=== PATIENT | female | born 1985 | race Caucasian/White ===

== ENCOUNTER 2025-02-12 14:07 | Observation (INO) ==
--- NOTE | 2025-02-12 14:47 | Emergency Department Note ---
Impression & Plan AMS (altered mental status), Elevated CK, Sinus tachycardia, Acute dehydration ED Provider Note HISTORY OF PRESENT ILLNESS: Patient is a 40-year-old female presenting with altered mental status and reported seizure-like activity. Patient was found by this morning to be very confused. He reports that they are currently having marital problems and is unsure if the patient has recently been drinking or if she took any extra medications. She reportedly had "seizure-like activity" in which she was rolling around on the ground. Patient remembers the entirety of the episode. Patient thinks it is 2013 and that it is Friday. She does report she had alcohol last night but she is unsure as to what she had to drink or when she stopped drinking. She has no complaints of pain on arrival to the emergency department. Denies any headache or changes in vision. arrives later and supplies more history. Reports that he has been out of town for the last few days but him and his have been face timing. States that she has not been taking their separation well and has not been eating or drinking very frequently. He states that last night he was FaceTime with the patient and she fell asleep while talking to him. Reports that he had his sister going to check on the patient and she was found laying on the bathroom floor next to the toilet. He reports that he got back around midday today and found the patient on her knees in the kitchen and states that she was speaking nonsensically. He states that he witnessed her take 5 pills, but thinks it was just some ibuprofen and sleep aid, as those are the only bottles in the house. He states that he assisted the patient to their dining room table and when he got her there, she started having "weird body convulsions and her face looked very scared." He reports that she has never had a seizure before. States that she was confused for a few minutes after the episode. Thinks that the episode lasted for around 60 seconds. No bowel or bladder incontinence. ROS: as above PHYSICAL EXAM: Constitutional: Patient appears in no acute distress. HENT: Head: Normocephalic and atraumatic. Eyes: EOMI, PERRL. Pupils are dilated but reactive to light. Mouth/Throat: Mucous membranes dry and tacky. Neck: Trachea midline. Neck supple. No midline cervical spine tenderness palpation. Cardiovascular: Tachycardic with regular rhythm. No murmurs, rubs or gallops. Intact distal pulses. Pulmonary/Chest: No respiratory distress. Breath sounds clear and equal bilaterally. No wheezes or rales. No chest wall tenderness to palpation. Abdominal: Abdomen soft, no tenderness, rebound or guarding. Musculoskeletal: No edema, tenderness or deformity noted. Skin: Warm and dry. No rash, erythema, pallor or cyanosis Neurological: Alert to person and place, but confused to time. She thinks it is 2013 and Friday. CN II-XII grossly intact, moving all extremities equally and fully. MDM: - Vitals signs showed tachycardia - History obtained via patient and EMS, given patient's confusion. History as above. - Chronic conditions affecting care: None - Differential diagnoses include, but are not limited to: Dehydration; electrolyte abnormality; dysrhythmia; ACS; pneumonia; CVA; alcohol intoxication; drug intoxication - Order placed for continuous cardiac monitoring. At this time, monitor showed rate of 115 bpm with normal sinus rhythm, per my interpretation. - External medical records reviewed. - EKG image interpreted by myself showed normal sinus rhythm. Rate tachycardic at 114 bpm. QT 334. No acute ischemic changes. - Laboratory workup interpreted by myself showed leukocytosis (WBC 13.53); normal PT/INR; stable electrolytes other than slight hypomagnesemia (Mg 2.6); elevated ALT (72); normal total bilirubin; elevated CK (824); normal troponin; normal lipase; normal TSH; negative hCG - CT head wo contrast negative for acute intracranial pathology - CT cervical spine wo contrast negative for acute injury - Tylenol, aspirin and acetaminophen levels negative - CXR image reviewed and interpreted by myself was negative for pneumonia, per my interpretation. - Patient given 2L NS in ER. Heart rate remained tachycardic, but did improve to the 110-115 bpm range. - UA negative for infection, but noted to have ketonuria. - UDS negative - On reassessment, the patient is still not back to her baseline per her at bedside. Unclear etiology for her symptoms at this time. She is still tachycardic despite 2 L of normal saline. - Discussion was had with watch case polisher about patient's case and need for admission - Hospitalist consulted for admission a - Patient admitted to [facility] service for further evaluation and management. ASSESSMENT AND PLAN: Diagnosis: Altered mental status; sinus tachycardia; elevated CK; acute dehydration Plan: admit Past Med/Surg History Problem List (Updated 02/12/25 @ 17:01 by Elizabeth Weller MD) Acute dehydration (Acute) Sinus tachycardia (Acute) Elevated CK (Acute) AMS (altered mental status) (Acute) Social History Smoking Status: Unknown if ever smoked Preferred Language: Czech Feels Safe at Home: Yes Allergies Allergies Allergy/AdvReac Type Severity Reaction Status Date / Time amoxicillin Allergy Severe Rash Unverified 02/12/25 16:07 Home Meds Home Medications Medication Instructions Recorded Confirmed loratadine 10 mg tablet 10 mg PO DAILY 02/12/25 02/12/25 omeprazole 20 mg capsule,delayed 20 mg PO DAILY 02/12/25 02/12/25 release Results & Data (ED) Vital Signs Vital Signs - 24 hr 02/12/25 14:27 02/12/25 14:42 02/12/25 14:42 Temperature Temperature Source Pulse Rate 116 H 125 H 118 H Pulse Rate [Apical] Pulse Rate from SpO2 Sensor 116 H 117 H Pulse Rhythm Pulse Rhythm [Apical] Pulse Strength Pulse Strength [Apical] Respiratory Rate 22 20 Respiratory Effort / Characteristics Respiratory Depth Respiratory Pattern Blood Pressure 137/90 Blood Pressure [Left Arm] Blood Pressure Mean 105 Blood Pressure Mean [Left Arm] Blood Pressure Position Blood Pressure Position [Left Arm] Pulse Oximetry 99 100 Oxygen Delivery Method Sepsis Recent Fever Within 48 Hours Sepsis New/Unexplained Change in Mental Status Sepsis Action Taken by Nursing 02/12/25 14:43 02/12/25 14:43 02/12/25 14:43 Temperature 36.7 C Temperature Source Oral Pulse Rate 113 H Pulse Rate [Apical] 111 H Pulse Rate from SpO2 Sensor Pulse Rhythm Regular Pulse Rhythm [Apical] Regular Pulse Strength Normal Pulse Strength [Apical] Normal Respiratory Rate Respiratory Effort / Characteristics Non-Labored Spontaneous Respiratory Depth Normal Respiratory Pattern Regular Blood Pressure 137/90 Blood Pressure [Left Arm] 137/90 Blood Pressure Mean 105 Blood Pressure Mean [Left Arm] 105 Blood Pressure Position Lying Blood Pressure Position [Left Arm] Lying Pulse Oximetry 99 99 Oxygen Delivery Method Room Air Room Air Sepsis Recent Fever Within 48 Hours No Sepsis New/Unexplained Change in Mental Status No Sepsis Action Taken by Nursing No Action Required 02/12/25 14:51 02/12/25 15:00 02/12/25 15:34 Temperature Temperature Source Pulse Rate 112 H 116 H 112 H Pulse Rate [Apical] Pulse Rate from SpO2 Sensor Pulse Rhythm Regular Pulse Rhythm [Apical] Pulse Strength Pulse Strength [Apical] Respiratory Rate 20 21 24 Respiratory Effort / Characteristics Respiratory Depth Respiratory Pattern Blood Pressure 128/93 122/87 Blood Pressure [Left Arm] Blood Pressure Mean 102 102 Blood Pressure Mean [Left Arm] Blood Pressure Position Blood Pressure Position [Left Arm] Pulse Oximetry 97 99 Oxygen Delivery Method Room Air Sepsis Recent Fever Within 48 Hours Sepsis New/Unexplained Change in Mental Status Sepsis Action Taken by Nursing 02/12/25 15:45 02/12/25 15:51 02/12/25 15:54 Temperature Temperature Source Pulse Rate 114 H 113 H 114 H Pulse Rate [Apical] Pulse Rate from SpO2 Sensor 114 H 114 H 114 H Pulse Rhythm Pulse Rhythm [Apical] Pulse Strength Pulse Strength [Apical] Respiratory Rate 17 21 18 Respiratory Effort / Characteristics Respiratory Depth Respiratory Pattern Blood Pressure Blood Pressure [Left Arm] Blood Pressure Mean Blood Pressure Mean [Left Arm] Blood Pressure Position Blood Pressure Position [Left Arm] Pulse Oximetry 100 100 100 Oxygen Delivery Method Sepsis Recent Fever Within 48 Hours Sepsis New/Unexplained Change in Mental Status Sepsis Action Taken by Nursing 02/12/25 16:00 02/12/25 16:00 02/12/25 16:12 Temperature Temperature Source Pulse Rate 113 H Pulse Rate [Apical] Pulse Rate from SpO2 Sensor 113 H Pulse Rhythm Pulse Rhythm [Apical] Pulse Strength Pulse Strength [Apical] Respiratory Rate 23 Respiratory Effort / Characteristics Respiratory Depth Respiratory Pattern Blood Pressure 125/97 125/97 Blood Pressure [Left Arm] Blood Pressure Mean 102 102 Blood Pressure Mean [Left Arm] Blood Pressure Position Blood Pressure Position [Left Arm] Pulse Oximetry 100 Oxygen Delivery Method Sepsis Recent Fever Within 48 Hours Sepsis New/Unexplained Change in Mental Status Sepsis Action Taken by Nursing 02/12/25 16:21 02/12/25 16:39 02/12/25 16:48 Temperature Temperature Source Pulse Rate 115 H 114 H Pulse Rate [Apical] 112 H Pulse Rate from SpO2 Sensor 114 H 114 H Pulse Rhythm Pulse Rhythm [Apical] Regular Pulse Strength Pulse Strength [Apical] Normal Respiratory Rate 19 21 20 Respiratory Effort / Characteristics Non-Labored Spontaneous Respiratory Depth Normal Respiratory Pattern Regular Blood Pressure Blood Pressure [Left Arm] 114/94 Blood Pressure Mean Blood Pressure Mean [Left Arm] 100 Blood Pressure Position Blood Pressure Position [Left Arm] Lying Pulse Oximetry 100 100 100 Oxygen Delivery Method Room Air Sepsis Recent Fever Within 48 Hours Sepsis New/Unexplained Change in Mental Status Sepsis Action Taken by Nursing Laboratory Data 02/12/25 14:56 02/12/25 14:56 Lab Results 02/12/25 02/12/25 Range/Units 14:56 16:41 WBC 13.53 H (4.8-10.8) K/ul RBC 4.78 (4.20-5.40) M/uL Hgb 15.2 (12.0-16.0) g/dl Hct 43.9 (37.0-47.0) % MCV 91.8 (80.0-100.0) fL MCH 31.8 (25.0-34.0) pg MCHC 34.6 (32.0-36.0) g/dL RDW Std Deviation 41.8 (36.4-46.3) fL RDW Coeff of Odin 12.5 (11.5-14.5) % Plt Count 272 (130-400) K/uL MPV 10.0 (9.4-12.4) fL Immature Gran % (Auto) 0.3 % Neut % (Auto) 92.4 % Lymph % (Auto) 3.5 % [place] % (Auto) 3.7 % Eos % (Auto) 0.0 % Baso % (Auto) 0.1 % Neut # (Auto) 12.50 H (1.40-6.50) K/uL Lymph # (Auto) 0.48 L (1.20-3.40) K/uL [place] # (Auto) 0.50 (0.11-0.59) K/uL Eos # (Auto) 0.00 (0.00-0.50) K/uL Baso # (Auto) 0.01 (0.00-0.20) K/uL Immature Gran # (Auto) 0.04 (0.01-0.20) K/uL PT 10.9 (9.0-12.0) Seconds INR 1.0 (0.9-1.1) Sodium 138 (136-145) mmol/L Potassium 4.4 (3.5-5.1) mmol/L Chloride 108 H (98-107) mmol/L Carbon Dioxide 19 L (21-32) mmol/L Anion Gap 11 (3-11) BUN 9 (6-23) mg/dl Creatinine 1.12 (0.6-1.2) mg/dl Est Cr Clr Drug Dosing 84.0 ml/min eGFR 63.36 BUN/Creatinine Ratio 8.0 L (10-20) Glucose 98 (70-99(Fasting)) mg/dl Calcium 9.2 (8.6-10.3) mg/dl Magnesium 2.6 H (1.7-2.4) mg/dl Total Bilirubin 0.4 (0.2-1.0) mg/dl AST 38 (13-39) U/L ALT 72 H (7-52) U/L Alkaline Phosphatase 60 (34-104) U/L Total Creatine Kinase 824 H (26-192) U/L Troponin I High Sens 8.0 (0-14) pg/ml Total Protein 8.2 (6.0-8.3) gm/dl Albumin 4.8 (3.4-5.0) gm/dl Globulin 3.4 (2.5-4.0) gm/dl Albumin/Globulin Ratio 1.4 (0.9-2) Lipase 15 (11-82) U/L TSH 1.889 (0.300-4.500) uIu/ml HCG, Qual Negative (Negative) Urine Color Yellow Urine Appearance Cloudy A (Clear) Urine pH 5.5 (4.5-7.5) Ur Specific [place] 1.018 (1.000-1.030) Urine Protein 1+ H (Negative) Urine Glucose (UA) Negative (Negative) Urine Ketones 2+ H (Negative) Urine Blood 3+ H (Negative) Urine Nitrite Negative (Negative) Urine Bilirubin Negative (Negative) Urine Urobilinogen Negative (Negative) Ur Leukocyte Esterase Negative (Negative) Urine WBC (Auto) 0-5 (0-5) /hpf Urine RBC (Auto) 0-2 (0-2) /hpf U Hyaline Cast (Auto) 0-2 (0-2) /lpf U Epithel Cells (Auto) 0-2 (0-2) /hpf Urine Bacteria (Auto) None Seen (None Seen) Urine Comment Salicylates < 3.0 L (3.0-30) mg/dl Urine Opiates Screen Neg (Neg) Ur Methadone, Qual Neg (Neg) Urine Fentanyl Screen Neg (Neg) Acetaminophen < 3 L (10-30) ug/ml Urine Barbiturates Neg (Neg) Ur Phencyclidine (PCP) Neg (Neg) U Amphetamin/Meth Scrn Neg (Neg) MDMA (Ecstasy) Screen Neg (Neg) U Benzodiazepines Scrn Neg (Neg) Ur Cocaine Metabolite Neg (Neg) U Marijuana (THC) Screen Neg (Neg) Ethyl Alcohol mg/dL < 10.0 (<10.0) mg/dl Administered Medications Discontinued Medications Sodium Chloride (Nss) 2,000 mls @ 999 mls/hr IV .Q2H1M ONE Stop: 02/12/25 17:27 Last Infusion: 02/12/25 17:27 Dose: Infused Documented By: Admin: 02/12/25 15:37 Dose: 999 mls/hr Documented By: FREDDY Imaging Data Radiologist's Impression: Cervical Spine CT 02/12/25 14:43 CT cervical spine without IV contrast History: Seizure Comparison: None Technique: Using multidetector thin collimation helical acquisition technique, axial, coronal and sagittal CT images through the cervical spine were obtained without intravenous contrast. Dose reduction techniques were achieved by using automatic exposure control and/or adjustment of mA and/or kV according to patient size and/or use of iterative reconstruction technique. Findings: The cervical vertebrae are normally aligned. Normal cervical lordosis. No acute fracture or subluxation. No prevertebral edema. Multilevel small degenerative osteophyte formation. No abnormality of the paraspinous soft tissues. Impression: No acute fracture or traumatic subluxation. Electronically signed by Angel Escalera 02-12-2025 3:[address] 02/12/25 14:43 CT head without contrast History: Seizure Comparison: None Technique: Using multidetector thin collimation helical acquisition technique, axial, coronal and sagittal CT images from the skull base to the vertex were obtained without intravenous contrast. Dose reduction techniques were achieved by using automatic exposure control and/or adjustment of mA and/or kV according to patient size and/or use of iterative reconstruction technique. Findings: No intracranial hemorrhage, mass-effect, or midline shift. The ventricles are proportionate to the cerebral sulci. The do to white matter differentiation of the cerebral hemispheres is preserved. The basal cisterns are patent. The visualized paranasal sinuses are clear. Mastoid air cells are clear. Impression: No acute intracranial pathology. Electronically signed by Angel Escalera 02-12-2025 3:58 PM Chest X-Ray 02/12/25 14:44 Chest radiograph, one view History: Chest pain Comparison: None Findings: Single AP view of the chest performed. No focal consolidation or pleural effusion. No pneumothorax. The cardiomediastinal silhouette is within normal limits. Normal pulmonary vascularity. No evidence for lymphadenopathy. No visualized bony or soft tissue abnormality. Impression: Normal chest radiograph Electronically signed by Angel Escalera 02-12-2025 3:45 PM Discharge Plan Visit Data Chief Complaint: Seizure ED Provider: Elizabeth Weller Discharge Problem: AMS (altered mental status), Elevated CK, Sinus tachycardia, Acute dehydration Condition: Fair Forms Stand Alone Forms: [facility] Prescriptions Prescriptions: No Action omeprazole 20 mg Capsule,Delayed Release(Dr/Ec) 20 mg PO DAILY loratadine 10 mg Tablet 10 mg PO DAILY Referrals Referrals: Keesha Monroe DO [Primary Care Provider] -
[2025-02-12 15:20] LABS: Hematocrit (blood only) 43.9 % (37.0-47.0); Hemoglobin 15.2 g/dl (12.0-16.0); Mean Corpuscular Hemoglobin 31.8 pg (25.0-34.0); Mean Corpuscular Volume 91.8 fL (80.0-100.0); Platelet Count 272 K/uL (130-400); RDW Standard Deviation 41.8 fL (36.4-46.3); Red Blood Count 4.78 M/uL (4.20-5.40); White Blood Count 13.53 K/ul (4.8-10.8)
[2025-02-12 15:37] LABS: Alanine Aminotransferase 72.0 U/L (7-52); Albumin Globulin Ratio 1.4 (0.9-2); Alkaline Phosphatase 60.0 U/L (34-104); Anion Gap 11.0 (3-11); Bilirubin,Total 0.4 mg/dl (0.2-1.0); Blood Urea Nitrogen 9.0 mg/dl (6-23); Calcium 9.2 mg/dl (8.6-10.3); Carbon Dioxide 19.0 mmol/L (21-32); Chloride 108.0 mmol/L (98-107); Creatine Kinase 824.0 U/L (26-192); Creatinine Clr Calc Pharmacy 84.0 ml/min; Globulin 3.4 gm/dl (2.5-4.0); Glucose 98.0 mg/dl (70-99(Fasting)); Lipase 15.0 U/L (11-82); Magnesium 2.6 mg/dl (1.7-2.4); Potassium 4.4 mmol/L (3.5-5.1); Sodium 138.0 mmol/L (136-145); Total Protein 8.2 gm/dl (6.0-8.3)
[2025-02-12] MEDS: SODIUM CHLORIDE 0.9% 2,000 ML IV ONE (15:37)
[2025-02-12 15:40] LABS: Immature Granulocytes # (auto) 0.04 K/uL (0.01-0.20); Immature Granulocytes % (auto) 0.3 %
[2025-02-12 15:45] LABS: Acetaminophen < 3 ug/ml (10-30); Salicylate < 3.0 mg/dl (3.0-30)
--- NOTE | 2025-02-12 15:46 | XRay Report ---
Chest radiograph, one view History: Chest pain Comparison: None Findings: Single AP view of the chest performed. No focal consolidation or pleural effusion. No pneumothorax. The cardiomediastinal silhouette is within normal limits. Normal pulmonary vascularity. No evidence for lymphadenopathy. No visualized bony or soft tissue abnormality. Impression: Normal chest radiograph Electronically signed by Angel Escalera 02-12-2025 3:45 PM
[2025-02-12 15:53] LABS: Thyroid Stimulating Hormone 1.889 uIu/ml (0.300-4.500)
--- NOTE | 2025-02-12 15:53 | CT Scan Report ---
CT cervical spine without IV contrast History: Seizure Comparison: None Technique: Using multidetector thin collimation helical acquisition technique, axial, coronal and sagittal CT images through the cervical spine were obtained without intravenous contrast. Dose reduction techniques were achieved by using automatic exposure control and/or adjustment of mA and/or kV according to patient size and/or use of iterative reconstruction technique. Findings: The cervical vertebrae are normally aligned. Normal cervical lordosis. No acute fracture or subluxation. No prevertebral edema. Multilevel small degenerative osteophyte formation. No abnormality of the paraspinous soft tissues. Impression: No acute fracture or traumatic subluxation. Electronically signed by Angel Escalera 02-12-2025 3:52 PM
--- NOTE | 2025-02-12 15:58 | CT Scan Report ---
CT head without contrast History: Seizure Comparison: None Technique: Using multidetector thin collimation helical acquisition technique, axial, coronal and sagittal CT images from the skull base to the vertex were obtained without intravenous contrast. Dose reduction techniques were achieved by using automatic exposure control and/or adjustment of mA and/or kV according to patient size and/or use of iterative reconstruction technique. Findings: No intracranial hemorrhage, mass-effect, or midline shift. The ventricles are proportionate to the cerebral sulci. The do to white matter differentiation of the cerebral hemispheres is preserved. The basal cisterns are patent. The visualized paranasal sinuses are clear. Mastoid air cells are clear. Impression: No acute intracranial pathology. Electronically signed by Angel Escalera 02-12-2025 3:58 PM
[2025-02-12 15:59] LABS: Pregnancy Test, Serum Negative (Negative)
[2025-02-12 16:15] LABS: INR 1.0 (0.9-1.1); Prothrombin Time 10.9 Seconds (9.0-12.0)
[2025-02-12 17:00] LABS: Appearance Urine Cloudy (Clear); Bacteria Urine Automated None Seen (None Seen); Cast Urine Automated 0-2 /lpf (0-2); Epithelial Cell Urine Auto 0-2 /hpf (0-2); Glucose Urine UA Negative (Negative); RBC Urine Automated 0-2 /hpf (0-2); WBC Urine Automated 0-5 /hpf (0-5)
[2025-02-12 17:31] LABS: Amphetamines+Metham, Urine Neg (Neg); MDMA (Ecstacy), Urine Neg (Neg); Marijuana, Urine Neg (Neg)
[2025-02-12] MEDS: LORazepam 1 MG/1 ML SYR ED Inj Use ONE (17:41)
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
[2025-02-12] MEDS ORDERED: ONDANSETRON INJ 2 MG/ML 2 ML VIAL IV PRN ×2 (20:10→22:26)
[2025-02-12] MEDS: ONDANSETRON INJ 2 MG/ML 2 ML VIAL ONE (20:12)
[2025-02-12] MEDS: LACTATED RINGER'S 1,000 ML IV SCH (20:12)
[2025-02-12] MEDS ORDERED: POLYETHYLENE (MIRALAX) 17 GM PACK PO PRN (22:26)
[2025-02-12] MEDS ORDERED: ACETAMINOPHEN 325 MG TAB PO PRN (22:26)
[2025-02-13 06:09] LABS: Hematocrit (blood only) 35.4 % (37.0-47.0); Hemoglobin 11.7 g/dl (12.0-16.0); Mean Corpuscular Hemoglobin 30.4 pg (25.0-34.0); Mean Corpuscular Volume 91.9 fL (80.0-100.0); Platelet Count 187 K/uL (130-400); RDW Standard Deviation 43.2 fL (36.4-46.3); Red Blood Count 3.85 M/uL (4.20-5.40); White Blood Count 8.55 K/ul (4.8-10.8)
[2025-02-13 06:24] LABS: Anion Gap 7.0 (3-11); Blood Urea Nitrogen 8.0 mg/dl (6-23); Calcium 8.1 mg/dl (8.6-10.3); Carbon Dioxide 21.0 mmol/L (21-32); Chloride 114.0 mmol/L (98-107); Creatinine Clr Calc Pharmacy 91.9 ml/min; Glucose 73.0 mg/dl (70-99(Fasting)); Magnesium 2.3 mg/dl (1.7-2.4); Potassium 3.7 mmol/L (3.5-5.1); Sodium 142.0 mmol/L (136-145)
--- NOTE | 2025-02-13 07:40 | Hospitalist Progress Note ---
Date of Service February 13, 2025 Assessment & Plan (1) Grand mal seizure: (2) Elevated CK: (3) Metabolic encephalopathy: Plan Per admitting provider w/ addendum: 40 yo F with pmhx of class III obesity, seasonal allergies and GERD who presents from home for seizure like activity and AMS in setting of new onset seizure activity #Grand Mal Seizures #Doxylamine/Diphenhydramine Overdose -unclear etiology, no hx of seizures in past, no family hx -concern for substance use last night based on of history but per and family feels unlikely - later revealed likely sleep aid overdose, which is doyxlamine -Addendum: thinks that the patient may have overdosed on doxylamine at home. Doxylamine is highly anticholinergic and seizure is likely 2/2 overdose. Admitting provider called poison control, who recommended q4hr ECGs, telemetry, ativan prn, and if ativan not working intubate and do propofol. Elevated lactic acid will continue to give fluids. -update, unclear if doxyalamine or diphenhydramine -does have alcohol use but not daily and only out 2 to 3 days per week -tox screen negative -CT imaging unremarkable -tachycardic, leukocytosis - on admission now normalized -QTC at 460, QRS of 60 -at least 2 witnessed episodes at this time, both times in same pattern with full body shaking, loss of conitnenance and tongue biting (witnessed by ED staff) -differential includes: doxylamine overodose ( later discussed this with staff), meningitis/other infectious etiology (possible but no localizing symptoms, no neck pain) less likely electrolyte abnormalities, autoimmune, other [employer] issues Plan: -loaded empirically with keppra 20mg/kg, then continued with 500 bid, benzo prn -seizure precautions, ativan prn ordered x1 for seizure activity -PCU admission -MR head with and without contrast - 1. No acute intracranial findings. Exam mildly compromised by motion artifact. 2. No intracranial mass or pathologic enhancement. -EEG ordered -blood cx obtained - pending, given SIRS criteria on admission, no source at this time -received LR as IVF -trend ECG q6hrs, rechecked salicylate level, ativan prn for agitation/seizure activity 9/ Pt drowsy this AM but able to answer simple questions appropriately. She is aware she is in the hospital at [facility] [address]. Had brain MRI done today as well and unremarkable per radiology read. She did receive 500 iv keppra this AM Psychiatry was consulted on admission given seizure and unclear if unintentional overdose or suicide attempt - pt seen by psych liaison and denies any SI Neurology consulted - recommendations pending #GERD -hold omeprazole #Allergies -hold claritin Admission and Anticipated Discharge Date Admission Date: February 12, 2025 Subjective Pt seen in follow up of seizure Currently lying in bed in NAD, drowsy but able to answer simple questions appropriately. Denies any headache, any chest pain, abd. pain, n/v Discussed w/ RN at the bedside as well Review of Systems Review of Systems: All systems reviewed & are unremarkable except as noted in Subjective Physical Exam Physical Exam: Gen: obese F in NAD, drowsy but able to answer simple questions appropriately HEENT: NCAT, EOMI. External ears normal. Neck: Supple Lungs: No Respiratory distress. CTAB. CV: regular rhythm Abdomen: Soft, nondistended, nontender MSK: moves extremities Neuro: drowsy but able to answer simple questions appropriately, speech fluent, no facial asymmetry, moving all 4 extremities Results & Data Results & Data Vital Signs (Past 12 Hours) Vital Signs Temp Pulse Pulse Resp BP BP Pulse Ox 02/13/25 02:23 36.9 C 99 H 16 114/76 96 02/12/25 22:12 115 H 02/12/25 22:05 37 C 106 H 16 105/66 97 02/12/25 20:01 122/75 02/12/25 20:00 113 H 19 98 O2 Del Method 02/13/25 02:23 Room Air 02/12/25 22:12 02/12/25 22:05 Room Air 02/12/25 20:01 02/12/25 20:00 Laboratory Results 02/13/25 02/12/25 02/12/25 Range/Units 05:07 23:18 18:50 WBC 8.55 (4.8-10.8) K/ul RBC 3.85 L (4.20-5.40) M/uL Hgb 11.7 L D (12.0-16.0) g/dl Hct 35.4 L (37.0-47.0) % MCV 91.9 (80.0-100.0) fL MCH 30.4 (25.0-34.0) pg MCHC 33.1 (32.0-36.0) g/dL RDW Std Deviation 43.2 (36.4-46.3) fL RDW Coeff of Odin 12.9 (11.5-14.5) % Plt Count 187 (130-400) K/uL MPV 9.9 (9.4-12.4) fL Immature Gran % (Auto) % Neut % (Auto) % Lymph % (Auto) % Falls % (Auto) % Eos % (Auto) % Baso % (Auto) % Neut # (Auto) (1.40-6.50) K/uL Lymph # (Auto) (1.20-3.40) K/uL Falls # (Auto) (0.11-0.59) K/uL Eos # (Auto) (0.00-0.50) K/uL Baso # (Auto) (0.00-0.20) K/uL Immature Gran # (Auto) (0.01-0.20) K/uL PT (9.0-12.0) Seconds INR (0.9-1.1) Sodium 142 (136-145) mmol/L Potassium 3.7 (3.5-5.1) mmol/L Chloride 114 H (98-107) mmol/L Carbon Dioxide 21 (21-32) mmol/L Anion Gap 7 (3-11) BUN 8 (6-23) mg/dl Creatinine 0.93 (0.6-1.2) mg/dl Est Cr Clr Drug Dosing 91.9 ml/min eGFR 79.19 BUN/Creatinine Ratio 8.6 L (10-20) Glucose 73 (70-99(Fasting)) mg/dl Lactate 2.6 H* 6.3 H* (0.4-2.0) mmol/L Calcium 8.1 L (8.6-10.3) mg/dl Phosphorus 2.8 (2.5-4.9) mg/dl Magnesium 2.3 (1.7-2.4) mg/dl Total Bilirubin (0.2-1.0) mg/dl AST (13-39) U/L ALT (7-52) U/L Alkaline Phosphatase (34-104) U/L Total Creatine Kinase (26-192) U/L Troponin I High Sens (0-14) pg/ml Total Protein (6.0-8.3) gm/dl Albumin (3.4-5.0) gm/dl Globulin (2.5-4.0) gm/dl Albumin/Globulin Ratio (0.9-2) Lipase (11-82) U/L TSH (0.300-4.500) uIu/ml Prolactin ng/ml HCG, Qual (Negative) Urine Color Urine Appearance (Clear) Urine pH (4.5-7.5) Ur Specific Sterling (1.000-1.030) Urine Protein (Negative) Urine Glucose (UA) (Negative) Urine Ketones (Negative) Urine Blood (Negative) Urine Nitrite (Negative) Urine Bilirubin (Negative) Urine Urobilinogen (Negative) Ur Leukocyte Esterase (Negative) Urine WBC (Auto) (0-5) /hpf Urine RBC (Auto) (0-2) /hpf U Hyaline Cast (Auto) (0-2) /lpf U Epithel Cells (Auto) (0-2) /hpf Urine Bacteria (Auto) (None Seen) Urine Comment Salicylates < 3.0 L (3.0-30) mg/dl Urine Opiates Screen (Neg) Ur Methadone, Qual (Neg) Urine Fentanyl Screen (Neg) Acetaminophen (10-30) ug/ml Urine Barbiturates (Neg) Ur Phencyclidine (PCP) (Neg) U Amphetamin/Meth Scrn (Neg) MDMA (Ecstasy) Screen (Neg) U Benzodiazepines Scrn (Neg) Ur Cocaine Metabolite (Neg) U Marijuana (THC) Screen (Neg) Ethyl Alcohol mg/dL (<10.0) mg/dl 02/12/25 02/12/25 Range/Units 16:41 14:56 WBC 13.53 H (4.8-10.8) K/ul RBC 4.78 (4.20-5.40) M/uL Hgb 15.2 (12.0-16.0) g/dl Hct 43.9 (37.0-47.0) % MCV 91.8 (80.0-100.0) fL MCH 31.8 (25.0-34.0) pg MCHC 34.6 (32.0-36.0) g/dL RDW Std Deviation 41.8 (36.4-46.3) fL RDW Coeff of Odin 12.5 (11.5-14.5) % Plt Count 272 (130-400) K/uL MPV 10.0 (9.4-12.4) fL Immature Gran % (Auto) 0.3 % Neut % (Auto) 92.4 % Lymph % (Auto) 3.5 % Falls % (Auto) 3.7 % Eos % (Auto) 0.0 % Baso % (Auto) 0.1 % Neut # (Auto) 12.50 H (1.40-6.50) K/uL Lymph # (Auto) 0.48 L (1.20-3.40) K/uL Falls # (Auto) 0.50 (0.11-0.59) K/uL Eos # (Auto) 0.00 (0.00-0.50) K/uL Baso # (Auto) 0.01 (0.00-0.20) K/uL Immature Gran # (Auto) 0.04 (0.01-0.20) K/uL PT 10.9 (9.0-12.0) Seconds INR 1.0 (0.9-1.1) Sodium 138 (136-145) mmol/L Potassium 4.4 (3.5-5.1) mmol/L Chloride 108 H (98-107) mmol/L Carbon Dioxide 19 L (21-32) mmol/L Anion Gap 11 (3-11) BUN 9 (6-23) mg/dl Creatinine 1.12 (0.6-1.2) mg/dl Est Cr Clr Drug Dosing 84.0 ml/min eGFR 63.36 BUN/Creatinine Ratio 8.0 L (10-20) Glucose 98 (70-99(Fasting)) mg/dl Lactate (0.4-2.0) mmol/L Calcium 9.2 (8.6-10.3) mg/dl Phosphorus 2.1 L (2.5-4.9) mg/dl Magnesium 2.6 H (1.7-2.4) mg/dl Total Bilirubin 0.4 (0.2-1.0) mg/dl AST 38 (13-39) U/L ALT 72 H (7-52) U/L Alkaline Phosphatase 60 (34-104) U/L Total Creatine Kinase 824 H (26-192) U/L Troponin I High Sens 8.0 (0-14) pg/ml Total Protein 8.2 (6.0-8.3) gm/dl Albumin 4.8 (3.4-5.0) gm/dl Globulin 3.4 (2.5-4.0) gm/dl Albumin/Globulin Ratio 1.4 (0.9-2) Lipase 15 (11-82) U/L TSH 1.889 (0.300-4.500) uIu/ml Prolactin 8.14 ng/ml HCG, Qual Negative (Negative) Urine Color Yellow Urine Appearance Cloudy A (Clear) Urine pH 5.5 (4.5-7.5) Ur Specific Sterling 1.018 (1.000-1.030) Urine Protein 1+ H (Negative) Urine Glucose (UA) Negative (Negative) Urine Ketones 2+ H (Negative) Urine Blood 3+ H (Negative) Urine Nitrite Negative (Negative) Urine Bilirubin Negative (Negative) Urine Urobilinogen Negative (Negative) Ur Leukocyte Esterase Negative (Negative) Urine WBC (Auto) 0-5 (0-5) /hpf Urine RBC (Auto) 0-2 (0-2) /hpf U Hyaline Cast (Auto) 0-2 (0-2) /lpf U Epithel Cells (Auto) 0-2 (0-2) /hpf Urine Bacteria (Auto) None Seen (None Seen) Urine Comment Salicylates < 3.0 L (3.0-30) mg/dl Urine Opiates Screen Neg (Neg) Ur Methadone, Qual Neg (Neg) Urine Fentanyl Screen Neg (Neg) Acetaminophen < 3 L (10-30) ug/ml Urine Barbiturates Neg (Neg) Ur Phencyclidine (PCP) Neg (Neg) U Amphetamin/Meth Scrn Neg (Neg) MDMA (Ecstasy) Screen Neg (Neg) U Benzodiazepines Scrn Neg (Neg) Ur Cocaine Metabolite Neg (Neg) U Marijuana (THC) Screen Neg (Neg) Ethyl Alcohol mg/dL < 10.0 (<10.0) mg/dl Medications Administered Current Inpatient Medications Acetaminophen (Acetaminophen 325 Mg Tab) 650 mg PO Q4H PRN PRN Reason: Pain or Fever Stop: 03/14/25 22:25 Levetiracetam (Levetiracetam Oral Soln 100mg/Ml) 500 mg PO Q12H MAUREEN Stop: 03/14/25 17:59 Last Admin: 02/12/25 17:59 Dose: Not Given Levetiracetam (Levetiracetam 500 Mg/5 Ml Vial) 500 mg IV Q12H MAUREEN Stop: 03/15/25 05:59 Last Admin: 02/13/25 05:19 Dose: 500 mg Lorazepam (Lorazepam 2 Mg/1 Ml Vial) 2 mg IV ONCE PRN PRN Reason: seizure Stop: 03/14/25 18:45 Ondansetron HCl (Ondansetron Inj 2 Mg/Ml 2 Ml Vial) 4 mg IV Q6H PRN PRN Reason: Nausea And Vomiting Stop: 03/14/25 20:09 Ondansetron HCl (Ondansetron Inj 2 Mg/Ml 2 Ml Vial) 4 mg IV Q6H PRN PRN Reason: Nausea Stop: 03/14/25 22:25 Polyethylene Glycol (Polyethylene (Miralax) 17 Gm Pack) 17 gm PO DAILY PRN PRN Reason: Constipation Stop: 03/14/25 22:25
[2025-02-13] MEDS: POTASSIUM CHLORIDE / WTR 10 MEQ/100 ML PLCT IV SCH (08:31)
--- NOTE | 2025-02-13 10:40 | Electrocardiogram Report ---
Test Reason : Blood Pressure : */* mmHG Vent. Rate : 114 BPM Atrial Rate : 114 BPM P-R Int : 166 ms QRS Dur : 62 ms QT Int : 334 ms P-R-T Axes : 48 43 47 degrees QTcB Int : 460 ms Sinus tachycardia Otherwise normal ECG No previous ECGs available Confirmed by Gaston Kirkpatrick ([id number]) on 02/13/2025 10:40:37 AM Referred By: Confirmed By: Gaston Kirkpatrick
--- NOTE | 2025-02-13 10:56 | Electrocardiogram Report ---
Test Reason : Blood Pressure : */* mmHG Vent. Rate : 91 BPM Atrial Rate : 91 BPM P-R Int : 140 ms QRS Dur : 66 ms QT Int : 364 ms P-R-T Axes : 51 47 54 degrees QTcB Int : 447 ms Normal sinus rhythm Normal ECG When compared with ECG of 12-Feb-2025 20:09, (unconfirmed) No significant change was found Confirmed by Gaston Kirkpatrick ([id number]) on 02/13/2025 10:56:00 AM Referred By: REFERRED SELF Confirmed By: Gaston Kirkpatrick
[2025-02-13] MEDS: GADOBUTROL 30ML VIAL IV ONE (12:02)
--- NOTE | 2025-02-13 12:47 | Magnetic Resonance Report ---
MRI OF THE BRAIN COMBO CLINICAL HISTORY: New onset seizures. COMPARISON STUDY: Head CT February 12, 2025. TECHNIQUE: MRI of the brain was performed utilizing various T1 and T2-weighted sequences in the axial , sagittal, and coronal planes. Contrast-enhanced sequences were acquired following the administratio n of 11 cc of Gadavist. FINDINGS: This exam is mildly compromised by motion artifact but is diagnostic. There are no foci of restricted diffusion to suggest acute infarct. No acute intracranial hemorrhage, midline shift or mas s effect is present. Brain volume is normal. Ventricular system is normal. The basal cisterns are pat ent. There are no extra-axial collections. Flow-voids for the major intracranial vessels are present. There is no intracranial mass or pathologic enhancement. Flow-voids for the major intracranial vesse ls are present. IMPRESSION: 1. No acute intracranial findings. Exam mildly compromised by motion artifact. 2. No intracranial mass or pathologic enhancement. ACT 112: Negative or not required by law. Electronically signed by: Crescencio Ryan M.D. 02/13/2025 12:44 PM
--- NOTE | 2025-02-13 14:58 | Neurology Consultation ---
Date of Consultation February 13, 2025 Assessment & Plan (1) Seizure-like activity: Generalized seizure- unclear etiology- No Driving per [place] state law unless etiology is identified and mitigated Communicated directly with primary/hospitalist team Recommend continue to monitor off AED at this time Agree with poison control recommendations Continue frequent neurological assessments Obtain stat CT brain without contrast for any acute neurological decline Continue to monitor/control blood pressure & blood glucose Recommend monitor renal and hepatic function, keep euvolemic Continue to monitor telemetry closely Recommend obtain EEG Provide seizure precautions Utilize benzodiazepines emergently for any breakthrough clinical seizure like activity VTE prophylaxis Telehealth Consultation Telehealth Information Telehealth Information: I performed this visit using a real-time telehealth connection between my location and the patients location ([facility]). After connecting through interactive tele-video, patient was identified by name and date of and/or wristband check.Patient (or authorized healthcare associate financial representative) was informed that this was a telemedicine visit and it was being conducted confidentially over secure lines. My office door was closed and no one else was present in the room with me.Patient (or authorized healthcare associate financial representative) provided consent to proceed with the visit, expressed an understanding of privacy and security of the telemedicine visit, and gave permission to have a hospital associate financial representative in the room in order to assist with the visit and to conduct portions of the visit, as needed. I informed the patient (or authorized healthcare associate financial representative) that I reviewed their record and presented the opportunity for them to ask any questions regarding the visit today. The patient agreed to participate. History of Present Illness Reason for Consultation: Seizure Requesting Physician: Dr Arreguin Attending Physician: Luis Daniel Arreguin MD History of Present Illness 40yo right handed female presented with reported seizure like activity including loss of consciousness tongue biting and urinary incontinence. labs revealed elevated lactic acid. There is concern of overdose/overuse of sleeping medication. Poison control has been contacted. Patient denies SI/HI. SHe has undergone CT brain and MRI brain without overt evidence of acute intracranial pathology. She was given Keppra upon arrival. I have performed televideo consultation. She is alert & oriented; able to answer all questions appropriately, name objects on televideo monitor, repeat phrases and perform complex/embedded commands without deficit. Neurological exam is non lateralizing/nonfocal in terms of motor strength and coordination. Denies recal of events leading up to hospitalization. Denies trying to hurt herself or others. Denies substance abuse. reports ongoing/recent marital issues. Allergies Allergy/AdvReac Type Severity Reaction Status Date / Time amoxicillin Allergy Severe Rash Unverified 02/12/25 16:07 Home Medications Medication Instructions Recorded Confirmed Type loratadine 10 mg tablet 10 mg PO DAILY 02/12/25 02/12/25 History omeprazole 20 mg capsule,delayed 20 mg PO DAILY 02/12/25 02/12/25 History release Patient History Social History Smoking Status: Never smoker Hx Alcohol Use: Yes Alcohol type: beer and hard liquor Hx Substance Use: No Preferred Language: Amharic Communication Ability: Impaired Employee Health Nurse Required: No Beliefs That Will Affect Care: None Current Living Situation: Spouse Current Living Situation Comment: Per pt's , Renny, they reside together Other Information That Helps Us Care for You: No Feels Safe at Home: Declines to Answer Physical Exam Neurological Examination: Mental Status: Awake and alert. Oriented to person, place, and time. Fluency naming repetition and comprehension appear grossly intact. Affect remains appropriate. CN testing: I: Deferred II: Reports no changes in visual acuity III/IV/: No evidence of gaze preference, hippus, nystagmus or roving eye movements V: Facial sensation reportedly grossly intact to light touch bilaterally VII: Facial movements appear without evidence of asymmetry VIII: Hearing appears grossly intact to loud voice bilaterally IX/X: Palate is unable to be accurately visualized XI: Shoulder shrug appears symmetric/ grossly intact bilaterally XII: Tongue protrudes midline Motor exam: Strength appears grossly intact in all extremities Tone: Unable to accurately assess via telemedicine Sensory: Sensation is reportedly grossly intact throughout Coordination: No apparent evidence of dysmetria or dysdiadochokinesia Reflexes: Unable to accurately assess via telemedicine Gait: Deferred Results & Data Vital Signs (Past 12 Hours) Vital Signs Temp Pulse Resp BP Pulse Ox O2 Del Method 02/13/25 14:04 37.0 C 91 H 17 106/60 97 Room Air 02/13/25 08:37 89 19 144/77 H 93 Room Air Laboratory Results Abnormal lab results 02/12/25 02/12/25 02/12/25 Range/Units 14:56 16:41 18:50 WBC 13.53 H (4.8-10.8) K/ul RBC (4.20-5.40) M/uL Hgb (12.0-16.0) g/dl Hct (37.0-47.0) % Neut # (Auto) 12.50 H (1.40-6.50) K/uL Lymph # (Auto) 0.48 L (1.20-3.40) K/uL Chloride 108 H (98-107) mmol/L Carbon Dioxide 19 L (21-32) mmol/L BUN/Creatinine Ratio 8.0 L (10-20) Lactate 6.3 H* (0.4-2.0) mmol/L Calcium (8.6-10.3) mg/dl Phosphorus 2.1 L (2.5-4.9) mg/dl Magnesium 2.6 H (1.7-2.4) mg/dl ALT 72 H (7-52) U/L Total Creatine Kinase 824 H (26-192) U/L Urine Appearance Cloudy A (Clear) Urine Protein 1+ H (Negative) Urine Ketones 2+ H (Negative) Urine Blood 3+ H (Negative) Salicylates < 3.0 L (3.0-30) mg/dl Acetaminophen < 3 L (10-30) ug/ml 02/12/25 02/13/25 Range/Units 23:18 05:07 WBC (4.8-10.8) K/ul RBC 3.85 L (4.20-5.40) M/uL Hgb 11.7 L D (12.0-16.0) g/dl Hct 35.4 L (37.0-47.0) % Neut # (Auto) (1.40-6.50) K/uL Lymph # (Auto) (1.20-3.40) K/uL Chloride 114 H (98-107) mmol/L Carbon Dioxide (21-32) mmol/L BUN/Creatinine Ratio 8.6 L (10-20) Lactate 2.6 H* (0.4-2.0) mmol/L Calcium 8.1 L (8.6-10.3) mg/dl Phosphorus (2.5-4.9) mg/dl Magnesium (1.7-2.4) mg/dl ALT (7-52) U/L Total Creatine Kinase (26-192) U/L Urine Appearance (Clear) Urine Protein (Negative) Urine Ketones (Negative) Urine Blood (Negative) Salicylates < 3.0 L (3.0-30) mg/dl Acetaminophen (10-30) ug/ml Diagnostic Findings Cervical Spine CT 02/12/25 14:43 CT cervical spine without IV contrast History: Seizure Comparison: None Technique: Using multidetector thin collimation helical acquisition technique, axial, coronal and sagittal CT images through the cervical spine were obtained without intravenous contrast. Dose reduction techniques were achieved by using automatic exposure control and/or adjustment of mA and/or kV according to patient size and/or use of iterative reconstruction technique. Findings: The cervical vertebrae are normally aligned. Normal cervical lordosis. No acute fracture or subluxation. No prevertebral edema. Multilevel small degenerative osteophyte formation. No abnormality of the paraspinous soft tissues. Impression: No acute fracture or traumatic subluxation. Electronically signed by Angel Escalera 02-12-2025 3:[address] 02/12/25 14:43 CT head without contrast History: Seizure Comparison: None Technique: Using multidetector thin collimation helical acquisition technique, axial, coronal and sagittal CT images from the skull base to the vertex were obtained without intravenous contrast. Dose reduction techniques were achieved by using automatic exposure control and/or adjustment of mA and/or kV according to patient size and/or use of iterative reconstruction technique. Findings: No intracranial hemorrhage, mass-effect, or midline shift. The ventricles are proportionate to the cerebral sulci. The do to white matter differentiation of the cerebral hemispheres is preserved. The basal cisterns are patent. The visualized paranasal sinuses are clear. Mastoid air cells are clear. Impression: No acute intracranial pathology. Electronically signed by Angel Escalera 02-12-2025 3:58 PM Chest X-Ray 02/12/25 14:44 Chest radiograph, one view History: Chest pain Comparison: None Findings: Single AP view of the chest performed. No focal consolidation or pleural effusion. No pneumothorax. The cardiomediastinal silhouette is within normal limits. Normal pulmonary vascularity. No evidence for lymphadenopathy. No visualized bony or soft tissue abnormality. Impression: Normal chest radiograph Electronically signed by Angel Escalera 02-12-2025 3:45 PM Brain MRI 02/13/25 11:42 MRI OF THE BRAIN COMBO CLINICAL HISTORY: New onset seizures. COMPARISON STUDY: Head CT February 12, 2025. TECHNIQUE: MRI of the brain was performed utilizing various T1 and T2-weighted sequences in the axial, sagittal, and coronal planes. Contrast-enhanced sequences were acquired following the administration of 11 cc of Gadavist. FINDINGS: This exam is mildly compromised by motion artifact but is diagnostic. There are no foci of restricted diffusion to suggest acute infarct. No acute intracranial hemorrhage, midline shift or mass effect is present. Brain volume is normal. Ventricular system is normal. The basal cisterns are patent. There are no extra-axial collections. Flow-voids for the major intracranial vessels are present. There is no intracranial mass or pathologic enhancement. Flow-voids for the major intracranial vessels are present. IMPRESSION: 1. No acute intracranial findings. Exam mildly compromised by motion artifact. 2. No intracranial mass or pathologic enhancement. ACT 112: Negative or not required by law. Electronically signed by: Crescencio Ryan M.D. 02/13/2025 12:44 PM Medications Administered Home Medications Medication Instructions Recorded Confirmed Last Taken loratadine 10 mg tablet 10 mg PO DAILY 02/12/25 02/12/25 02/11/25 omeprazole 20 mg capsule,delayed 20 mg PO DAILY 02/12/25 02/12/25 02/11/25 release Active Medications Generic Name Dose Route Start Last Admin Trade Name Freq PRN Reason Stop Dose Admin Levetiracetam 500 mg 02/12/25 18:00 02/12/25 17:59 Levetiracetam Oral Soln 100mg/Ml PO 03/14/25 17:59 Not Given Q12H MAUREEN
[2025-02-14 06:30] LABS: Hematocrit (blood only) 37.7 % (37.0-47.0); Hemoglobin 12.4 g/dl (12.0-16.0); Mean Corpuscular Hemoglobin 30.5 pg (25.0-34.0); Mean Corpuscular Volume 92.6 fL (80.0-100.0); Platelet Count 179 K/uL (130-400); RDW Standard Deviation 42.9 fL (36.4-46.3); Red Blood Count 4.07 M/uL (4.20-5.40); White Blood Count 6.09 K/ul (4.8-10.8)
[2025-02-14 06:57] LABS: Anion Gap 8.0 (3-11); Blood Urea Nitrogen 11.0 mg/dl (6-23); Calcium 8.6 mg/dl (8.6-10.3); Carbon Dioxide 23.0 mmol/L (21-32); Chloride 108.0 mmol/L (98-107); Creatinine Clr Calc Pharmacy 111.3 ml/min; Glucose 68.0 mg/dl (70-99(Fasting)); Magnesium 2.2 mg/dl (1.7-2.4); Potassium 3.7 mmol/L (3.5-5.1); Sodium 139.0 mmol/L (136-145)
[2025-02-14 07:16] VITALS: PULSE 71; RESP 16; TEMP 98.1; O2SAT 99
--- NOTE | 2025-02-14 09:47 | Electrocardiogram Report ---
Test Reason : Blood Pressure : */* mmHG Vent. Rate : 93 BPM Atrial Rate : 93 BPM P-R Int : 138 ms QRS Dur : 66 ms QT Int : 358 ms P-R-T Axes : 54 55 55 degrees QTcB Int : 445 ms Normal sinus rhythm Normal ECG When compared with ECG of 13-Feb-2025 05:19, No significant change was found Confirmed by Gaston Kirkpatrick ([id number]) on 02/14/2025 9:46:55 AM Referred By: REFERRED SELF Confirmed By: Gaston Kirkpatrick
--- NOTE | 2025-02-14 10:23 | Discharge Summary ---
Discharge Summary Date of Service February 14, 2025 Principal Dx & Hospital Course #1 = Principal Diagnosis (1) Drug-induced seizure: (2) Diphenhydramine adverse reaction: (3) Metabolic encephalopathy: (4) Acute dehydration: Plan Patient 40-year-old female presented to the emergency room with acute onset of seizure. She also had witnessed seizure in the ED. Patient was initially loaded with Keppra and admitted to the hospital. Additional history obtained from patient's and reported that she had taken several diphenhydramine sleep aids. She also had classic symptoms associated with anticholinergics which included seizures, drowsiness, headache, abdominal discomfort, blurry vision, diaphoresis, dry mouth. Patient was seen by neurology during her hospitalization. They recommended holding Keppra and observing off of any antiseizure medication. Patient had no further seizures. She returned to her baseline mental status. MRI of the brain did not show any acute abnormalities. Other laboratory studies were unremarkable. On the day of discharge she was tolerating her diet. Explained to the patient that she should abstain from any sleep aids in the future. She does not have a cry[employer] driver's license and does not drive so [employer] does not need to be informed. She denies any suicidal or homicidal ideation. She did not intentionally take additional sleep aids. She was just simply trying to get some sleep. Should be discharged home to outpatient follow-up with her PCP. She can discuss treatment for her sleep issues with her PCP we did review good sleep hygiene with her and her before discharge including a set regular bedtime, avoiding alcohol before bedtime, avoiding caffeine 6 hours prior to bedtime, avoiding screen time just prior to sleep, excetra. Notes For Next Care Provider Medication Changes From Visit None Admission HPI Per Admitting Provider 40 yo female with pmhx of class III obesity, seasonal allergies and GERD who presents from home for seizure like activity and AMS. No admissions her at [facility]. In the ED, had witnessed 30 second seizure with full tonic clonic movements, tongue biting, and loss of urinary continence. Given ativan, admitted to medicine. Patient seen and examined at bedside. Patient minimally responsive and unable to give any history. Discussed with legal next of kin, , at bedside. Per , they have been having marital issues for the past few weeks and he has not been with her recently. Came in from out out of town for a few days, and they had a fight on facetime last night. He sent his sister to check in her on her this morning and she found down by the toilet speaking nonsensically. Per her she had urinary incontinence at that time. When he came over today she was speaking nonsensically, and down on the floor of the kitchen. When he got her to the table she started shaking and having strange facial expressions. She would not respond to him and was very confused when the episode. Was out drinking last night in [place] with friends. Per , she goes out a few nights a week (2-3 at most) but does not drink nightly. He states the house does not have drugs in it but he is concerned she was taking something last night. Admission Exam Per Admitting Provider See H&P Discharge Exam Constitutional: Alert HEENT: Mucous membranes moist. Lungs: Clear to auscultation, decreased, no wheezes rales or rhonchi CV: S1-S2, regular Abdomen: Soft, nontender, nondistended Extremities: No significant edema Neuro: No focal deficits Psych: Cooperative, normal mood Updated Medication List Medication Instructions Recorded Confirmed Type loratadine 10 mg tablet 10 mg PO DAILY 02/12/25 02/12/25 History omeprazole 20 mg capsule,delayed 20 mg PO DAILY 02/12/25 02/12/25 History release Hospital Stay Data Consultations 02/12/25 17:26 ED Decision to Admit Stat 02/12/25 20:13 Consult Psychiatry Routine 02/13/25 07:38 Consult Neurology Routine Diagnostic Imagining Performed 02/12/25 14:43 CT cervical spine wo con Stat CT head/brain wo con Stat 02/13/25 11:42 MR brain wo/w con Urgent Reviewed imaging, laboratory and diagnostic studies. Pertinent findings as below. CBC stable Electrolytes stable Creatinine 0.78 Brain MRI showed no acute intracranial findings cervical spine CT showed no acute findings or fracture EEG performed, final report pending Pending Results Patient Have Any Pending Studies at Discharge: Yes Discharge Instructions Given to Patient (Per Discharging Provider) Would avoid all sleep medications Decrease alcohol intake Total Time Total Time Spent Total Time Spent (In Minutes): 33
[2025-02-14 10:35] VITALS: BP 106/60
--- NOTE | 2025-02-14 11:37 | Electrocardiogram Report ---
Test Reason : Blood Pressure : */* mmHG Vent. Rate : 114 BPM Atrial Rate : 114 BPM P-R Int : 152 ms QRS Dur : 68 ms QT Int : 332 ms P-R-T Axes : 53 55 54 degrees QTcB Int : 457 ms Sinus tachycardia Nonspecific ST abnormality Abnormal ECG When compared with ECG of 12-Feb-2025 14:41, No significant change was found Confirmed by Gaston Kirkpatrick ([id number]) on 02/14/2025 11:37:09 AM Referred By: REFERRED SELF Confirmed By: Gaston Kirkpatrick
== END 2025-02-14 11:12 | disposition home or self-care (01) | DRG 100 ==
LOC: ED 14:07 → INTOOBSV 17:45 → 4W 17:45 → SUATTDRO 17:45 → 4W 22:00